=== PATIENT | female | born 1955 | race Caucasian/White ===

== ENCOUNTER 2023-03-29 17:20 | Emergency (ER) | payer OTHER, MEDICARE, SELFPAY ==
--- NOTE | 2023-03-29 17:44 | ED.URI ---
HPI - URI/Sore Throat General Chief Complaint: Upper Respiratory Infection Stated Complaint: cough Time Seen by Provider: 03/29/23 17:38 Source: patient Mode of arrival: ambulatory Limitations: no limitations History of Present Illness HPI Narrative: Roopa is a 67-year-old female patient presenting to the clinic today with complaints of a cough x2 weeks. She reports she is bringing up some white phlegm at times. No history of COPD or asthma. States she does not have a primary care doctor nor has she been to the doctor in a long time. MD elicited complaint: cough and other Related Data Allergies Allergy/AdvReac Type Severity Reaction Status Date / Time No Known Allergies Allergy Verified 03/29/23 17:53 Review of Systems Review of Systems: Pertinent positives per HPI. Patient denies any fever, chills, rash, headache, visual changes, dizziness, shortness of breath, chest pain, palpitations, nausea, vomiting, diarrhea, constipation, abdominal pain, or any urinary issues. PMFSH Family History Family History Mother Family history of osteoarthritis Family history of lymphoma, Onset Age: 84 Patient's mother is Father Carcinoma of colon Social History Social History Smoking status: Never smoker Alcohol intake: current Comments At the time of my signature, I reviewed and agree with the nursing past medical, surgical, social, and family history. There is no relevant family history pertinent to the patient complaint. Exam Narrative: General: Well-developed, well nourished, in no apparent distress Head: Normocephalic, atraumatic Eyes: Pupils equally round and reactive to light bilaterally, EOM intact, sclera and conjunctive clear, no discharge, lids normal Ears: TMs intact and clear, ear canals clear, no drainage, grossly hearing normal. Nose: Nares patent, no discharge, no inflammation, no sinus tenderness. Mouth: Oral pharynx without lesions or masses, good dentition, MMM. Neck: Supple, trachea midline, no enlargement of anterior or posterior cervical nodes, no thyroid masses or goiter palpable. Cardio: Regular rate and rhythm, s1 and s2 normal, no murmur appreciated. Resp: Expiratory wheezing with inspiratory rhonchi, no rales or rubs Course Course Emergency Course: Portions of this record may have been created with voice recognition software. Level of Care: Express Care Visit Vital Signs Vital signs: Vital signs reviewed MDM - URI/Sore Throat MDM Narrative Medical decision making narrative: At the time of visit patient is resting comfortably on the exam table. Patient appears to be nontoxic. Suspect patient has bronchitis. Prescription for prednisone, azithromycin, and albuterol inhaler was sent to the pharmacy. Supportive measures were discussed with the patient and they voiced understanding discharge instructions and agrees to treatment plan. Return precautions reviewed Differential Diagnosis Differential diagnosis: Likely upper respiratory infection, otitis media, sinusitis, viral infection, bronchitis, influenza, pharyngitis and other (COVID) Discharge Plan Discharge Clinical Impression: Bronchitis Patient Disposition: Home, Self-Care Condition: Stable Instructions: Antibiotic Form, Acute Bronchitis (ED) Additional Instructions: Take prescription medications only as prescribed-prednisone, albuterol inhaler, and azithromycin Increase fluids and stay well hydrated Tylenol/motrin for pain/fever Flonase and OTC antihistamines as directed Vicks vapor rub to open sinuses Sinus rinses for congestion Cepacol spray, cough drops, throat lozenges, warm tea with honey/lemon, gargle salt water to soothe throat BRAT diet for diarrhea Clear liquids x 24 hours then advance as tolerated for nausea/vomiting Go to the ED if you de
[2023-03-29 17:48] VITALS: BP 165/83; PULSE 78; RESP 18; TEMP 36.2; O2SAT 97
== END 2023-03-29 18:00 | disposition home or self-care (01) ==
PROVIDERS: Emergency Provider Nurse Practitioner Family
DX: J40 Bronchitis, not specified as acute or chronic (principal)
CPT/HCPCS: 99213; G0463

== ENCOUNTER 2023-11-09 13:39 | Outpatient (CLI) | payer MEDICARE, SELFPAY ==
--- NOTE | ~2023-11-09 | MM_ITS ---
EXAMINATION: MM screening magui BI w dory HISTORY: Screening TECHNIQUE: Craniocaudal and mediolateral oblique 3-D tomosynthesis images were obtained and synthetic 2-D images were generated. CAD analysis was submitted and interpreted. COMPARISON: No prior mammogram is available for comparison at this institution. BREAST PARENCHYMAL COMPOSITION: Not dense: There are scattered areas of fibroglandular density. FINDINGS: There is focal asymmetry with associated pleomorphic calcifications in the lower inner quad rant of the right breast posteriorly near the chest wall. The left breast is stable without evidence for malignancy. IMPRESSION: 1. Focal right breast asymmetry with associated calcifications lower inner quadrant posteriorly. 2. Additional mammographic views and possible breast ultrasound are recommended. BI-RADS Category 0: Incomplete: Needs additional imaging evaluation. Reviewed, dictated and finalized at location B. IMPRESSION: 1. Focal right breast asymmetry with associated calcifications lower inner quad rant posteriorly. 2. Additional mammographic views and possible breast ultrasound are recommended . BI-RADS Category 0: Incomplete: Needs additional imaging evaluation.
== END 2023-11-09 13:40 ==
PROVIDERS: PCP Nurse Practitioner Family; Visit Provider Nurse Practitioner Family
DX: Z12.31 Encounter for screening mammogram for malignant neoplasm of breast (principal); R92.8 Other abnormal and inconclusive findings on diagnostic imaging of breast
CPT/HCPCS: 77063; 77067

== ENCOUNTER 2023-12-26 07:46 | Outpatient (CLI) | payer MEDICARE, SELFPAY ==
--- NOTE | ~2023-12-26 | MM_ITS ---
EXAMINATION: MM diagnostic mammo unilat RT HISTORY: Right breast calcifications TECHNIQUE: Additional spot magnification and ML images of the right breast were performed and synthet ic 2-D images were generated. CAD analysis was submitted and interpreted. Additional skin lesion at t he right inframammary fold region was demarcated by an O marker. COMPARISON: 11/09/2023 BREAST PARENCHYMAL COMPOSITION:Not Dense. There are scattered areas of fibroglandular density. FINDINGS: A focal density with small calcifications corresponds with a nearly demarcated skin lesion at the right inframammary lesion. This therefore is compatible presumably benign skin lesion. No susp icious parenchymal abnormality seen. IMPRESSION: No mammographic evidence for malignancy. Findings on recent screening mammogram corresponds to a skin lesion at the inframammary region. BI-RADS Category 1: Negative Reviewed, dictated and finalized at location .
== END 2023-12-26 07:47 | disposition home or self-care (01) ==
PROVIDERS: PCP Nurse Practitioner Family; Visit Provider Nurse Practitioner Family
DX: R92.8 Other abnormal and inconclusive findings on diagnostic imaging of breast (principal)
CPT/HCPCS: 77065

== ENCOUNTER 2024-06-02 03:07 | Day surgery (SDC) | payer MEDICARE, SELFPAY ==
[2024-05-20 08:38] VITALS: BMI 30.9
--- OUTSIDE RECORDS SUMMARY | 2024-06-02 03:12 | XMS_ITS | Referral Summary ---
Author Organization [facility] [address] Address [facility] [place] [address] Care Team Providers Care Client Solutions Specialist Name Role Phone Lisa Dowell NP Primary Care Provider [phone] Allergies No known active allergies Medications ascorbic acid (ascorbic acid with traci hips) 500 mg tablet,chewable Acti ve ergocalciferol, vitamin D2, (VITAMIN D2 ORAL) Take by mouth Active semaglutide 0.25 mg or 0.5 mg (2 mg/3 mL) pen injector injectionIndicati ons:Type 2 diabetes mellitus with hyperlipidemia (HCC) Inject 0.25 mg under the skin every 7 days 11/16/19 24 Active metFORMIN XR (GLUCOPHAGE XR) 500 mg 24 hr tabletIndications :Type 2 diabetes mellitus with hyperlipidemia (HCC) TAKE 2 TABLETS BY MOUTH EVERY DAY WITH BREAKFAST 180 tablet 1 12/17/19 24 Active alendronate (FOSAMAX) 70 mg tablet Take 1 tablet (70 mg total) by mouth every 7 days Take in the morning with a full glass of water, on an empty stomach, and do not take anything else by mouth or lie down for the next 30 min. 12 tablet 1 02/28/20 24 Active rosuvastatin (CRESTOR) 20 mg tabletIndications :Type 2 diabetes mellitus with hyperlipidemia (HCC) TAKE 1 TABLET BY MOUTH EVERY DAY 100 tablet 1 05/06/19 25 Active rosuvastatin (CRESTOR) 20 mg tabletIndications :Type 2 diabetes mellitus with hyperlipidemia (HCC) TAKE 1 TABLET BY MOUTH EVERY DAY 90 tablet 1 11/12/19 24 025 Discontinued Active Problems Problem Noted Date Diagnosed Date Age-related osteoporosis wit hout current pathological fracture 02/28/2024 Assessment & Plan (02/28/2024 8:46 AM SUPERVISING DEPUTY): Recent bone density scan showed osteoporosis. Education provided. Rx'd Fosamax today. Type 2 diabetes mellitus with hyperlipidemia 12/2023 Assessment & Plan (02/28/2024 8:47 AM SUPERVISING DEPUTY): Continuing Rosuvastatin 20 mg daily. Denies any side effects. Will re-check levels with labs today. Assessment & Plan (11/16/2023 8:43 AM CDT): Continuing Rosuvastatin 20 mg daily. Denies any side effects. Will re-check levels next visit. Assessment & Plan (08/16/2023 9:09 AM CDT): Lipid panel shows great improvement and control. Continuing Rosuvastatin and diet/exercise changes. Denies any adverse reaction and liver function WNL. Type 2 diabetes mellitus wit h hyperglycemia, without long-term current use of insulin 06/28/2023 Assessment & Plan (02/28/2024 8:47 AM SUPERVISING DEPUTY): Will recheck A1c with labs today. Doing a great job with diet/exercise. Can consider decreasing Ozempic based on updated A1c. Assessment & Plan (11/16/2023 8:43 AM CDT): A1c today in office is 5.6, previous was 6.5. Doing a great job with diet/exercise. Will decrease the Ozempic to 0.25 mg weekly and continue Metformin as is. Assessment & Plan (08/16/2023 9:09 AM CDT): A1c greatly improved. Originally her A1c was 13.6%, today it is 6.5%. Will continue the Ozempic 0.5 mg weekly dosing and Metformin. Immunizations Immunization Administration Dates Next Due Influenza, Unspecified 05/17/2023(Deferr ed: Patient Refused),04/09/2023(Deferred: Patient Refused),04/09/2022(Deferred: Patient Refused),04/09/2022(Deferred: Patient Refused) Social History Tobacco Use Types Packs/Day Years Used Date Smoking Tobacco: Never Passive Smoke Exposure: Never Smokeless Tobacco: Never Tobacco Cessation:Counseling Given: Not Answered PHQ-2 Answer Date Recorded PHQ-2 Total Score (If total score is 3 or more points, staff should administer the PHQ-9) 0 02/28/2024 Comments Unknown Sex and Gender Information Value Date Recorded Sex Assigned at Not on file Legal Sex Female 2:37 AM SUPERVISING DEPUTY Gender Identity Not on file Sexual Orientation Not on file Last Filed Vital Signs Vital Sign Reading Time Taken Comments Blood Pressure 110/72 02/28/2024 8:01 AM SUPERVISING DEPUTY Pulse 79 02/28/2024 8:01 AM SUPERVISING DEPUTY Temperature 36 C (96.8 F) 02/28/2024 8:01 AM SUPERVISING DEPUTY Respiratory Rate 18 05/17/2023 11:22 AM SUPERVISING DEPUTY Oxygen Saturation 99% 02/28/2024 8:01 AM SUPERVISING DEPUTY Inhaled Oxygen Concentration - - Weight 78.9 kg (174 lb) 02/28/2024 8:01 AM SUPERVISING DEPUTY Height 161.8 cm (5' 3.7 ) 02/28/2024 8:01 AM SUPERVISING DEPUTY Body Mass Index 30.15 02/28/2024 8:01 AM SUPERVISING DEPUTY Plan of Treatment Not on file Procedures Procedure Name Priority Date/Time Associated Diagnosis Comments EGFR Routine 02/28/2024 8:48 AM SUPERVISING DEPUTY Type 2 diabetes mellitus with hyperglycemia, without long-term current use of insulin (HCC) HEMOGLOBIN A1C Routine 02/28/2024 8:48 AM SUPERVISING DEPUTY Type 2 diabetes mellitus with hyperglycemia, without long-term current use of insulin (HCC) LIPID PANEL Routine 02/28/2024 8:48 AM SUPERVISING DEPUTY Type 2 diabetes mellitus with hyperglycemia, without long-term current use of insulin (HCC) DEXA AXIAL SKELETON BONE DENSITY 1 OR MORE SITES Schedule Routine, Read Routine (OP Routine) 01/24/2024 7:07 AM CDT Encounter for osteoporosis screening in asymptomatic postmenopausal patient HM MAMMOGRAPHY Routine 11/09/2023 3:08 PM CDT ALBUMIN CREATININE RATIO, URINE Routine 08/15/2023 8:29 AM CDT Type 2 diabetes mellitus with hyperglycemia, without long-term current use of insulin (CMS/HCC) (HCC) HEPATITIS C ANTIBODY Routine 05/17/2023 2:46 PM SUPERVISING DEPUTY Encounter for hepatitis C screening test for low risk patient from Last 3 Months or Most Recently Relevant to Health Maintenance Results * eGFR (02/28/2024 8:48 AM SUPERVISING DEPUTY) eGFR >90 >=60 mL/min/1. 73 m2 Comment: Interpretive Data Reference Interval Normal >/= 90 mL/min/1.73m2 Mildly decreased* 60 - 89 mL/min/1.73m2 Mildly to moderately decreased 45 - 59 mL/min/1.73m2 Moderately to severely decreased 30 - 44 mL/min/1.73m2 Severely decreased 15 - 29 mL/min/1.73m2 Kidney Failure < 15 mL/min/1.73m2 *Relative to young adult level Estimated glomerular filtration rate is determined by the 2020 CKD-EPI equation recommended by the National Kidney Foundation (A Unifying Approach to GFR Estimation: Recommendations of the NKF-ASK Task Force on Reassessing the Inclusion of Race in Diagnosing Kidney Disease, JASN 2020). The CKD-EPI equation should not be used for patients with unstable renal function and has not been validated in children and those over 70. Current interpretive data was last reviewed 2021. Blood 02/28/2024 8:48 AM SUPERVISING DEPUTY 02/28/2024 6:48 PM SUPERVISING DEPUTY us Lisa Dowell NP LAB BLOOD ORDERABLES Final Resul t [facility] [address] Department [place] [address] * (ABNORMAL) Hemoglobin A1c (02/28/2024 8:48 AM SUPERVISING DEPUTY) Hgb A1C 5.8(H) 4.0 - 5.6 % Estimated Average Glucose 120 mg/dL [facility] Comment: The ADA recommends reporting an estimated Average Glucose (eAG) with all Hemoglobin A1c results using the equation derived from a study of 507 normal and diabetic adults. Minority populations were underrepresented and children were not included. (Diabetes Care 31:3544-3618, 2008). The eAG is not equivalent to a fasting glucose. Blood 02/28/2024 8:48 AM SUPERVISING DEPUTY 02/28/2024 6:47 PM SUPERVISING DEPUTY us Lisa Dowell NP LAB BLOOD ORDERABLES Final Resul t [facility] [address] Department [place] [address] * Lipid panel (02/28/2024 8:48 AM SUPERVISING DEPUTY) Cholesterol 156 30 - 199 mg/dL Comment: Interpretive Data Ages < or = 19 years Acceptable: <170 mg/dL Borderline high: 170-199 mg/dL High: >or= 200 mg/dL Ages > or = 20 years Desirable: <200 mg/dL Borderline high: 200-239 mg/dL High: >or= 240 mg/dL Literature References: 1. Expert Panel on Integrated Guidelines for Cardiovascular Health and Risk Reduction in Children and Adolescents. Pediatrics 2011;128:S213 2. NCEP Expert Panel. Circulation 2004;110:227 Current Interpretive Data was last revised on 2017. Triglycerides 130 <=149 mg/dL [facility] Comment: Interpretive Data Ages < or = 9 years Acceptable: <75 mg/dL Borderline high: 75-99 mg/dL High: >or= 100 mg/dL Ages 10 to 20 years Acceptable: <90 mg/dL Borderline high: 90-129 mg/dL High: >or= 130 mg/dL Ages > or = 20 years Desirable: <150 mg/dL Borderline high: 150-199 mg/dL High: 200-499 mg/dL Very high: >or= 499 mg/dL Literature References: 1. Expert Panel on Integrated Guidelines for Cardiovascular Health and Risk Reduction in Children and Adolescents. Pediatrics 2011;128:S213 2. NCEP Expert Panel. Circulation 2004;110:227 Current Interpretive Data was last revised on 2017. HDL 56 >=40 mg/dL [facility] Comment: Interpretive Data Ages < or = 19 years Acceptable: >45 mg/dL Borderline low: 40-45 mg/dL Low: <40 mg/dL Ages > or = 20 years Desirable: >or= 60 mg/dL Low: <40 mg/dL Literature References: 1. Expert Panel on Integrated Guidelines for Cardiovascular Health and Risk Reduction in Children and Adolescents. Pediatrics 2011;128:S213 2. NCEP Expert Panel. Circulation 2004;110:227 Current Interpretive Data was last revised on 2017. LDL, calculated 77 <=129 mg/dL [facility] Comment: Interpretive Data Ages < or = 19 years Acceptable: <110 mg/dL Borderline high: 110-129 mg/dL High: >or= 130 mg/dL Ages > or = 20 years Optimal: <100 mg/dL Near optimal: 100-129 mg/dL Borderline high: 130-159 mg/dL High: >160 mg/dL Calculated using the Pan LDL-C estimating equation. This equation was implemented on 2023. Prior to this date LDL-C was estimated using the Friedewald equation. Literature References: 1. Expert Panel on Integrated Guidelines for Cardiovascular Health and Risk Reduction in Children and Adolescents. Pediatrics 2011;128:S213 2. NCEP Expert Panel. Circulation 2004;110:227 3. Pan M et al. HAM Cardiol. 2019August 07;5(5):540-548. doi: 10.1001/jamacardio.2020.0013 Current Interpretive Data was last revised on 2023. Non-HDL Cholesterol 100 mg/dL [facility] Comment: Interpretive Data Ages < or = 19 years Acceptable: <120 mg/dL Borderline high: 120-144 mg/dL High: >145 mg/dL Ages > or = 20 years When triglycerides are >200 mg/dL, Non-HDL cholesterol is a secondary target of therapy with treatment goals that are 30 mg/dL greater than the LDL cholesterol target. Literature References: 1. Expert Panel on Integrated Guidelines for Cardiovascular Health and Risk Reduction in Children and Adolescents. Pediatrics 2011;128:S213 2. NCEP Expert Panel. Circulation 2004;110:227 Current Interpretive Data was last revised on 2017. Chol/HDL ratio 3 [facility] Blood 02/28/2024 8:48 AM SUPERVISING DEPUTY 02/28/2024 6:47 PM SUPERVISING DEPUTY us Lisa Dowell [employer] LAB BLOOD ORDERABLES Final Resul t [facility] [address] Department [place] [address] * Dexa Axial Skeleton Bone Density 1 or 2 Site (01/24/2024 7:07 AM CDT) Anatomical Region Laterality Modality Body N/A Mammography 01/24/2024 9:24 AM CDT Narrative 01/24/2024 9:31 AM CDT EXAM DESCRIPTION: DEXA AXIAL SKELETON BONE DENSITY 1 OR MORE SITES REASON FOR STUDY: 68 year old postmenopausal white female with given history of: 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 Has taken vitamin-D. Performs regular weight-bearing exercise. Regularly consumes dairy products. Drinks caffeinated beverages. COMPARISON: None available FINDINGS: AP LUMBAR SPINE L1-L4: Total BMD is 0.719 g/cm2 T-score is -3.0 LEFT HIP: Total BMD is 0.787 g/cm2 T-score is -1.3 Femoral neck BMD is 0.642 g/cm2 T-score is -1.9 FRAX: FRAX not reported due to T-scores of hip, femoral neck and/or spine being at or below -2.5 (Osteoporosis). IMPRESSION: Osteoporosis. REFERENCE: Bone mineral density: T-Score: Normal (T-score above or = -1.0) Low bone mass (T-score between -1.0 and -2.5) replaces the previously used term osteopenia Osteoporosis (T-score = or below -2.5) Z-Score: Within the expected range for age (Z-score above -2.0) Below the expected range for age (Z-score is -2.0 or below) Please see below follow up recommendations. Medical evaluation for secondary causes of low bone mineral density may be appropriate. FRAX is a World Health Organization validated fracture risk assessment tool that calculates a person's 10 year probability of a major osteoporosis related fracture and hip fracture. According to the National Osteoporosis Foundation guidelines, postmenopausal women and men age 50 or older with low bone mass and a 10 year probability of a major osteoporosis related fracture = or greater than 20% or a 10 year probability of a hip fracture = or greater than 3% should be considered for pharmacological treatment for the prevention of osteoporosis. For further information, including treatment recommendations, please refer to the 2019 ISCD Official Positions (http://www.iscd.org) and the NOF's Clinician's Guide to Prevention and Treatment of Osteoporosis (http://www.nof.org/professionals/clinical-guidelines) THIS IS AN ELECTRONICALLY VERIFIED FINAL REPORT 01/24/2024 9:31 AM - Electronically signed by Ar Bal M.D. 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 Has taken vitamin-D. Performsregular weight-bearing exercise. Regularly consumes dairy products. Drinks caffeinated beverages. COMPARISON: None available FINDINGS: AP LUMBAR SPINE L1-L4: Total BMD is 0.719 g/cm2 T-score is -3.0 LEFT HIP: Total BMD is 0.787 g/cm2 T-score is -1.3 Femoral neck BMD is 0.642 g/cm2 T-score is -1.9 FRAX: FRAX not reported due to T-scores of hip, femoral neck and/or spine beingat or below -2.5 (Osteoporosis). IMPRESSION: Osteoporosis. REFERENCE: Bone mineral density: T-Score: Normal (T-score above or = -1.0) Low bone mass (T-score between -1.0 and -2.5) replaces thepreviously used term osteopenia Osteoporosis (T-score = or below -2.5) Z-Score: Within the expected range for age (Z-score above -2.0) Below the expected range for age (Z-score is -2.0 or below) Please see below follow up recommendations. [facility] of low bone mineral density may be appropriate. FRAX is a World Health Organization validated fracture risk assessmenttool that calculates a person's 10 year probability of a major osteoporosisrelated fracture and hip fracture. According to the National OsteoporosisFoundation guidelines, postmenopausal women and men age 50 or older with low bonemass and a 10 year probability of a major osteoporosis related fracture = or greater than 20% or a 10 year probability of a hip fracture = or greaterthan 3% should be considered for pharmacological treatment for the preventionof osteoporosis. For further information, including treatment recommendations, please referto the 2019 ISCD Official Positions (http://www.iscd.org) and the NOF's Clinician's Guide to Prevention and Treatment of Osteoporosis (http://www.nof.org/professionals/clinical-guidelines) THIS IS AN ELECTRONICALLY VERIFIED FINAL REPORT 01/24/2024 9:31 AM - Electronically signed by Ar Bal M.D. RB: TRI Report ID: [id number] Reading Location: [place] [address] Lisa Dowell NP IMG DXA PROCEDURES Final Result * HM MAMMOGRAPHY (11/09/2023 3:08 PM CDT) Historical Provider HEALTH MAINTENANCE Final Result * Albumin Creatinine Ratio, Urine (08/15/2023 8:29 AM CDT) Albumin Ur 18.3 mg/L Comment: Interpretive Data No reference range established. Current interpretive data was last revised 2018. Creatinine Ur 64.1 mg/dL [facility] Comment: Interpretive Data No reference range established. Current interpretive data was last revised 2018. Albumin Creatinine Ratio, Ur 29 1 - 29 mg/g [facility] Urine 08/15/2023 8:29 AM CDT 08/15/2023 2:50 PM CDT us Lisa Dowell NP LAB URINE ORDERABLES Final Resul t Performing Organization Address [facility] Phone Number [facility] [id number] [address] [facility] [place] [address] * Hepatitis C antibody Blood (05/17/2023 2:46 PM SUPERVISING DEPUTY) Hep C Ab Nonreactive Nonreactive [facility] Comment: Interpretive Data Nonreactive: Antibodies to HCV not detected. Does NOT exclude the possibility of recent exposure to HCV. Equivocal: Equivocal for HCV antibodies. Supplemental molecular testing will be automatically performed to determine infection status in accordance with current CDC screening recommendations. Reactive: Positive for HCV antibodies. This may represent current or past HCV infection. Supplemental molecular testing will be automatically performed to determine current infection status in accordance with current CDC screening recommendations. Interpretive data was last revised on 2019. Blood 05/17/2023 2:46 PM SUPERVISING DEPUTY 05/17/2023 7:42 PM SUPERVISING DEPUTY us Lisa Dowell NP LAB MICROBIOLOGY - GENERAL ORDER PASQUALE Final Result Performing Organization Address [facility] Phone Number [facility] [address] [place] [address] from Last 3 Months or Most Recently Relevant to Health Maintenance Insurance MEDICARE COMMERCIAL GENERIC Care Teams Client Solutions Specialist Relationship Specialty Start Date End Date Lisa Dowell NP [address] [facility] [address] [place] [address] PCP - General Family Medicine 05/17/23
--- OUTSIDE RECORDS SUMMARY | 2024-06-02 03:12 | XMS_ITS | Clinical Summary ---
Author Organization [facility] [address] Address [address] [place] [id number] Care Team Providers Care Carton Wrapper Name Role Phone Lisa Dowell NP Primary Care Provider [phone] Allergies No known active allergies Medications ascorbic [...] 02/28/2024 Assessment & Plan (02/28/2024 8:46 AM CLEANER AND PREPARER): Recent bone density scan showed osteoporosis. Education provided. Rx'd Fosamax today. Type 2 diabetes mellitus with hyperlipidemia 12/2023 Assessment & Plan (02/28/2024 8:47 AM CLEANER AND PREPARER): Continuing Rosuvastatin 20 mg daily. Denies any [...] 06/28/2023 Assessment & Plan (02/28/2024 8:47 AM CLEANER AND PREPARER): Will recheck A1c with labs today. Doing [...] Refused),04/09/2023(Deferred: Patient Refused),04/09/2022(Deferred: Patient Refused),04/09/2022(Deferred: Patient Refused) Surgical History Surgery Date Site/Laterality Comments FOOT SURGERY 04/09/2003 - 04/08/2004 Cyst on foot Family History Medical History Relation Name Comments Colon cancer Father Diabetes Maternal Grandmother Lymphoma Mother Relation Name Status Comments Father Maternal Grandmother Mother Social History Tobacco Use Types Packs/Day Years [...] on file Legal Sex Female 2:37 AM CLEANER AND PREPARER Gender Identity Not on file Sexual Orientation Not on file Obstetrics History Last Filed Vital Signs Vital Sign Reading Time Taken Comments Blood Pressure 110/72 02/28/2024 8:01 AM CLEANER AND PREPARER Pulse 79 02/28/2024 8:01 AM CLEANER AND PREPARER Temperature 36 C (96.8 F) 02/28/2024 8:01 AM CLEANER AND PREPARER Respiratory Rate 18 05/17/2023 11:22 AM CLEANER AND PREPARER Oxygen Saturation 99% 02/28/2024 8:01 AM CLEANER AND PREPARER Inhaled Oxygen Concentration - - Weight 78.9 kg (174 lb) 02/28/2024 8:01 AM CLEANER AND PREPARER Height 161.8 cm (5' 3.7 ) 02/28/2024 8:01 AM CLEANER AND PREPARER Body Mass Index 30.15 02/28/2024 8:01 AM CLEANER AND PREPARER Plan of Treatment Health Maintenance Due Date Last Done Comments DTaP/Tdap/Td Vaccine (1 - Tdap) 1968 Hepatitis B Screening 1975 Pneumococcal vaccine 65+ (1 of 2 - PCV) 1976 Zoster Vaccine (1 of 2) 2007 Well Visit 65+ 2022 Influenza Vaccine (#1) 2023 Colon Cancer Screening-Colonoscopy 12/27/2023 12/26/2018 Albumin Creatinine Ratio, Urine 08/14/2024 08/15/2023 Foot Exam 08/15/2024 08/16/2023 Hemoglobin A1C 08/27/2024 02/28/2024, 08/0 12/2023, 08/15/2023, Additional history exists Breast Cancer Screening-Mammogram 11/08/2024 11/09/2023, 11/09/2023 Dilated Eye Exam 11/15/2024 10/07/2022 Postponed f rom 10/08/2023 (Patient declined, but will receive in the future) Depression Screening 02/27/2025 02/28/2024, 11/16/2023, 08/16/2023, Additional history exists Fall Risk Assessment 02/27/2025 02/28/2024, 11/16/2023, 08/16/2023, Additional history exists Lipid Panel 02/27/2025 02/28/2024, 05/0 11/2023, 05/17/2023 eGFR 02/27/2025 02/28/2024, 05/0 11/2023, 05/17/2023 Osteoporosis Screening-Bone Density Scan 01/23/2026 01/24/2024 Hepatitis C Screening Completed 05/17/2023 Procedures Procedure Name Priority Date/Time Associated Diagnosis Comments EGFR Routine 02/28/2024 8:48 AM CLEANER AND PREPARER Type 2 diabetes mellitus with hyperglycemia, without long-term current use of insulin (HCC) HEMOGLOBIN A1C Routine 02/28/2024 8:48 AM CLEANER AND PREPARER Type 2 diabetes mellitus with hyperglycemia, without long-term current use of insulin (HCC) LIPID PANEL Routine 02/28/2024 8:48 AM CLEANER AND PREPARER Type 2 diabetes mellitus with hyperglycemia, without [...] HEPATITIS C ANTIBODY Routine 05/17/2023 2:46 PM CLEANER AND PREPARER Encounter for hepatitis C screening test for low risk patient from Last 3 Months or Most Recently Relevant to Health Maintenance Results * eGFR (02/28/2024 8:48 AM CLEANER AND PREPARER) eGFR >90 >=60 mL/min/1. 73 m2 Comment: [...] last reviewed 2021. Blood 02/28/2024 8:48 AM CLEANER AND PREPARER 02/28/2024 6:48 PM CLEANER AND PREPARER Lisa Dowell NP LAB BLOOD ORDERABLES Final Resul t [facility] [id number] Department [place] [address] * (ABNORMAL) Hemoglobin A1c (02/28/2024 8:48 AM CLEANER AND PREPARER) Hgb A1C 5.8(H) 4.0 - 5.6 % Estimated Average Glucose 120 mg/dL [facility] Comment: The ADA recommends reporting an estimated Average Glucose (eAG) with all Hemoglobin A1c results using the equation derived from a study of 507 normal and diabetic adults. Minority populations were underrepresented and children were not included. (Diabetes Care 31:1481-6790, 2008). The eAG is not equivalent to a fasting glucose. Blood 02/28/2024 8:48 AM CLEANER AND PREPARER 02/28/2024 6:47 PM CLEANER AND PREPARER us Lisa Dowell SENIOR SOFTWARE PROJECT MANAGER LAB BLOOD ORDERABLES Final Resul t [facility] [address] Department [place] [address] * Lipid panel (02/28/2024 8:48 AM CLEANER AND PREPARER) Cholesterol 156 30 - 199 mg/dL Comment: [...] NCEP Expert Panel. Circulation 2004;110:227 3. Pan Carter et al. HAM Cardiol. 2019August 07;5(5):540-548. doi: 10.1001/jamacardio.2020.0013 Current Interpretive Data was last revised on 2023. Non-HDL Cholesterol 100 mg/dL [facility] Comment: Interpretive Data Ages [...] revised on 2017. Chol/HDL ratio 3 [facility] Blood 02/28/2024 8:48 AM CLEANER AND PREPARER 02/28/2024 6:47 PM CLEANER AND PREPARER us Lisa Dowell NP LAB BLOOD ORDERABLES Final Resul t [facility] [address] Department [place] [address] * Dexa Axial Skeleton Bone Density 1 or 2 Site (01/24/2024 7:07 AM CDT) Anatomical Region Laterality Modality Body N/A Mammography 01/24/2024 9:24 AM CDT Narrative 01/24/2024 9:31 AM CDT EXAM DESCRIPTION: DEXA AXIAL SKELETON BONE DENSITY 1 OR MORE SITES REASON FOR STUDY: 68 year old postmenopausal white female with given history of: Osteoporosis screening [employer] Crewmember/Model: Sandvine A (S/N [id number]) CLINICAL INFORMATION: Current height: 64 inches Maximum [...] Ar Bal M.D. RB: TRI Report ID: [id number] Reading Location: [place] [address] Procedure Note Ar Bal MD - 01/24/2024 EXAM DESCRIPTION: DEXA AXIAL SKELETON BONE DENSITY 1 OR MORE SITES REASON FOR STUDY: 68 year old postmenopausal white female with given history of: Osteoporosis screening [employer] Crewmember/Model: Sandvine A (S/N [id number]) CLINICAL INFORMATION: Current height: 64 inches Maximum [...] see below follow up recommendations. [facility] causes of low bone mineral density may [...] Ar Bal M.D. RB: TRI Report ID: [id number] Reading Location: [place] [address] us Lisa Dowell NP IMG DXA PROCEDURES Final Result * HM MAMMOGRAPHY (11/09/2023 3:08 PM CDT) [facility] Provider HEALTH MAINTENANCE Final Result * Albumin Creatinine Ratio, Urine (08/15/2023 8:29 AM CDT) Albumin Ur 18.3 mg/L Comment: Interpretive Data No reference range established. Current interpretive data was last revised 2018. Creatinine Ur 64.1 mg/dL [facility] Comment: Interpretive Data No reference range established. Current interpretive data was last revised 2018. Albumin Creatinine Ratio, Ur 29 1 - 29 mg/g [facility] Urine 08/15/2023 8:29 AM CDT 08/15/2023 2:50 PM CDT us Lisa Dowell NP LAB URINE ORDERABLES Final Resul t [facility] [address] Department [place] [address] * Hepatitis C antibody Blood (05/17/2023 2:46 PM CLEANER AND PREPARER) Hep C Ab Nonreactive Nonreactive [facility] Comment: Interpretive Data Nonreactive: Antibodies to HCV [...] revised on 2019. Blood 05/17/2023 2:46 PM CLEANER AND PREPARER 05/17/2023 7:42 PM CLEANER AND PREPARER Lisa Dowell NP LAB MICROBIOLOGY - GENERAL ORDER PASQUALE Final Result Performing Organization Address City/State/ZIP Co dc Phone Number [facility] [address] [place] [address] from Last 3 Months or Most Recently Relevant to [place] [address] MEDICARE COMMERCIAL GENERIC Care Teams Carton Wrapper Relationship Specialty Start Date End Date Lisa Dowell NP [address] [facility] [address] [place] [address] PCP - General Family Medicine 05/17/23
--- OUTSIDE RECORDS SUMMARY | 2024-06-02 03:13 | XMS_ITS | Clinical Summary ---
Author Organization [facility] Address [address], [facility] [address] [place] [address] Phone Care Team Providers Care Soc Analyst Name Role Phone Florentino Marquis MD Primary Care Provider [phone] Janet Hughes APRN, GROUND CREWMAN Unavailable Unavail able Social History Tobacco Use Types Packs/Day Years Used Date Smoking Tobacco: Never Assessed Comments Unknown Sex and Gender Information Value Date Recorded Sex Assigned at Not on file Legal Sex Female 10:04 AM CDT Gender Identity Not on file Sexual Orientation Not on file Plan of Treatment Health Maintenance Due Date Last Done Comments DEXA Bone Density 1957 Hepatitis C Virus (HCV) Screening 1957 TdaP Immunization 1957 Cologuard 2007 Immunochemical Fecal Occult Blood 2007 Mammogram 2007 Pneumococcal Immunization (5 0+ years) (1 of 1 - PCV) 2007 Zoster Immunization (1 of 2) 2007 Influenza Immunization (#1) 2023 SARS-COV-2 Immunization ( - season) 2023 Colonoscopy 12/17/2023 12/16/2018 Colorectal Cancer Screening 12/17/2023 Respiratory Syncytial Virus (RSV) Immunization (Adult) (1 - 1-dose 75+ series) 2032 12/16/2018 Hepatitis B Immunization Aged Out No longer eligible based on patient's age to complete this topic Meningococcal Immunization (ACWY) Aged Out No longer eligible based on patient's age to complete this topic Rotavirus Immunization Aged Out No lo nger eligible based on patient's age to complete this topic Procedures Procedure Name Priority Date/Time Associated Diagnosis Comments COLONOSCOPY Routine 12/16/2018 from Last 3 Months or Most Recently Relevant to Health Maintenance Results * HM COLONOSCOPY (12/16/2018) Ivan Paredes DO PROCEDURE/MINOR SURGICAL ORDERA BLES Final Result from Last 3 Months or Most Recently Relevant to Health Maintenance Care Teams Soc Analyst Relationship Specialty Start Date End Date Florentino Marquis MD [address] [place] [address] PCP - General Family Medicine 01/10/18 Janet Hughes, BELL STAFF, GROUND CREWMAN [address] [place] [address] Certified Nurse Practitioner 01/10/18
--- OUTSIDE RECORDS SUMMARY | 2024-06-02 03:13 | XMS_ITS | Clinical Summary ---
Author Organization [facility] Address [address] [place] [id number] Care Team Providers Care Portfolio Architect Name Role Phone Unavailable Primary Care Provider Unavailabl e Social History Tobacco Use Types Packs/Day Years Used Date Smoking Tobacco: Never Assessed Comments Unknown Sex and Gender Information Value Date Recorded Sex Assigned at Not on file Legal Sex Female 7:52 PM CDT Gender Identity Not on file Sexual Orientation Not on file Plan of Treatment Health Maintenance Due Date Last Done Comments Colorectal Cancer Screening Colonoscopy (10 Years) 1957 Hepatitis C 1975 DTaP, Tdap and Td Vaccines ( 1 - Tdap) 1976 Mammogram Screening 1997 Zoster Vaccines (1 of 2) 2007 Dexa Scan (General) 2022 Pneumococcal Vaccine: 65+ Ye ars (1 of 1 - PCV) 2022 COVID-19 Vaccine ( - 2023-2 5 season) 2023 Influenza Adult (#1) 2024 RSV Immunization or 60+ Years (1 - 1-dose 75+ series) 2032 Meningococcal B Vaccine Aged Out No l onger eligible based on patient's age to complete this topic Meningococcal Vaccine Aged Out No freddie vashti eligible based on patient's age to complete this topic RSV Immunizations Under 20 Months Aged Out No longer eligible based on patient's age to complete this topic
[2024-06-02 06:25] VITALS: BP 145/65; PULSE 80; RESP 18; TEMP 36.3; O2SAT 100
[2024-06-02] MEDS: LACTATED RINGERS 1,000 ML 150 ML IV CONT (06:39)
[2024-06-02 06:45] LABS: Glucose Point of Care 136 mg/dl (65-105)
--- NOTE | 2024-06-02 07:30 | P.PNAN_ITS ---
Anes - Initial Pre Proc Eval Procedure: Operation Date: 06/02/24 07:30 Proposed Procedures p Screening Colonoscopy - Bill Silver MD Date/Time: 06/02/24 07:30 Surgeon: Bill Silver MD Pre Op Diagnosis: screening malignant neoplasm colon Patient Data Age: 69 Gender: F Height: 1.63 m Weight: 83.3 kg Last Vital Signs Temp 97.4 F L 06/02/24 06:25 Pulse 80 06/02/24 06:25 Resp 18 06/02/24 06:25 BP 145/65 H 06/02/24 06:25 Pulse Ox 100 06/02/24 06:25 O2 Del Method Room Air 06/02/24 06:25 Allergies Allergy/AdvReac Type Severity Reaction Status Date / Time No Known Allergies Allergy Verified 06/02/24 06:23 Home Medications ?Medication ?Instructions ?Recorded ?Confirmed ?Type albuterol sulfate 90 mcg/actuation 2 puff inhalation Q4-6H PRN 03/29/23 05/20/24 Rx aerosol inhaler shortness of breath or wheezing 30 days #8.5 grams alendronate 70 mg tablet 70 mg PO DAILY 05/20/24 05/20/24 History metformin 500 mg tablet,extended 500 mg PO DAILY 05/20/24 06/02/24 History release 24 hr rosuvastatin 20 mg tablet 20 mg PO DAILY 05/20/24 06/02/24 History Laboratory Tests 06/02/24 06:42 POC Capillary Glucose 136 H mg/dl (65-105) Patient hx anesthesia problems: none Family hx anesthesia problems: none Results Review: All pre-operative results and documents have been reviewed as part of the pre- operative evaluation. [facility] Family History Family History Mother Family history of osteoarthritis Family history of lymphoma, Onset Age: 84 Patient's mother is Father Carcinoma of colon Social History Social History Smoking status: Never smoker Alcohol intake: current Alcohol use details: 2-3 drinks a month Substance use: never Substance use type: does not use Living arrangements: with family Spiritual care concerns: No Anes - Eval Final PreProcedure Day of Procedure 06/02/24 07:30 Patient weight: obese Lungs: normal air movement Airway: Mallampati scale class II Neurological: alert and oriented Last oral intake: >/= 8 hours ASA classification: III Emergent: no Anesthetic plan: proceed Anesthesia type and monitoring: general GIVS and standard monitoring Results Review: All pre-operative results and documents have been reviewed as part of the pre- operative evaluation. Anxiety, ETOH use excessive on weekends, pt smokes 2 cigs/day. Informed Consent: The patient's anesthetic plan and its attendant risks and benefits were discussed with the patient/family/POA. Questions were solicited and answers provided to the satisfaction of the patient/family/POA.
--- NOTE | 2024-06-02 07:31 | PM.HPGS ---
History of Present Illness History of Present Illness Consent: Risks, benefits, and alternatives have been discussed and questions answered. Patient agrees to proceed with procedure. Chief complaint: screening malignant neoplasm colon Narrative: Roopa Chambers is a 69 year old female with colon polyp 6 years ago Review of Systems Review of Systems: All systems reviewed & are unremarkable except as noted in HPI and below PMFSH Past Medical History Medical History (Updated 06/02/24 @ 07:31 by Bill Silver MD) Colon polyp Family History Family History Mother Family history of osteoarthritis Family history of lymphoma, Onset Age: 84 Patient's mother is Father Carcinoma of colon Social History Social History Smoking status: Never smoker Alcohol intake: current Alcohol use details: 2-3 drinks a month Substance use: never Substance use type: does not use Living arrangements: with family Spiritual care concerns: No Meds Home Medications and Allergies Home Medications ?Medication ?Instructions ?Recorded ?Confirmed ?Type albuterol sulfate 90 mcg/actuation 2 puff inhalation Q4-6H PRN 03/29/23 05/20/24 Rx aerosol inhaler shortness of breath or wheezing 30 days #8.5 grams alendronate 70 mg tablet 70 mg PO DAILY 05/20/24 05/20/24 History metformin 500 mg tablet,extended 500 mg PO DAILY 05/20/24 06/02/24 History release 24 hr rosuvastatin 20 mg tablet 20 mg PO DAILY 05/20/24 06/02/24 History Allergies Allergy/AdvReac Type Severity Reaction Status Date / Time No Known Allergies Allergy Verified 06/02/24 06:23 Vital Signs Vital Signs - 24 hr 06/02/24 06:25 Temperature 97.4 F L Pulse Rate 80 Respiratory Rate 18 Blood Pressure 145/65 H Pulse Oximetry 100 Oxygen Delivery Room Air Exam Const: General: comfortable and no acute distress HENMT: Face/Nose/Sinus: Normal nares present Eyes: General: appearance normal, both eyes and all related structures Neck: Neck: no JVD Resp: Auscultation: clear to auscultation bilaterally Cardio: Rate: regular rate Rhythm: regular rhythm GI: Inspection: non-distended GI Palp: Yes Soft to palpation Skin: General skin exam: normal color Neuro: General: gait normal Speech: normal speech Extrem: General: normal to inspection Psych: Mental Status: mental status grossly normal Assessment and Plan Assessment and plan (1) Colon polyp: Code(s): K63.5 - Polyp of colon Status: Acute Assessment and Plan: colonoscopy
[2024-06-02 07:44] VITALS: BP 116/63; PULSE 66; RESP 18; O2SAT 99
[2024-06-02 07:54] VITALS: BP 117/58; PULSE 64; RESP 18; O2SAT 99
[2024-06-02 08:04] VITALS: BP 123/65; PULSE 65; RESP 18; O2SAT 100
== END 2024-06-02 08:16 | disposition home or self-care (01) ==
PROVIDERS: PCP Nurse Practitioner Family; Visit Provider Internal Medicine Gastroenterology
PROC: 0DJD8ZZ Inspection of Lower Intestinal Tract, Via Natural or Artificial Opening Endoscopic (ICD-10-PCS; CPT 45378; principal; 2024-06-02 07:30)
DX: Z12.11 Encounter for screening for malignant neoplasm of colon (principal); K57.32 Diverticulitis of large intestine without perforation or abscess without bleeding; Z86.0100 Personal history of colon polyps, unspecified; Z79.84 Long term (current) use of oral hypoglycemic drugs; E66.9 Obesity, unspecified; Z68.31 Body mass index [BMI] 31.0-31.9, adult
CPT/HCPCS: G0105; 82948; J2704; J7120